=== PATIENT | female | born 1985 | race Caucasian/White ===

== ENCOUNTER → 2020-10-20 14:00 | Outpatient (BNVA) | payer BC, MEDICAID, SELFPAY | PROVIDERS: Visit Provider Obstetrics & Gynecology | DX: N87.0 Mild cervical dysplasia (principal); Z01.411 Encounter for gynecological examination (general) (routine) with abnormal findings | CPT/HCPCS: 88175 ==

== ENCOUNTER 2020-12-16 14:06 | Outpatient (CLI) | payer BC, MEDICAID, SELFPAY ==
--- NOTE | 2020-12-16 15:00 | US_ITS ---
WS: [id number] ULTRASOUND BREAST RIGHT TECHNIQUE: Ultrasound right breast focused area of concern. CLINICAL INFORMATION: N64.4 - Mastodynia COMPARISON: None. FINDINGS: Ultrasound right breast at the 3:00 position 3 cm from the nipple. Tiny cystic lesion at the 3:00 pos ition 1 cm from the nipple measuring 4 x 5 mm consistent with an incidental benign cyst. No other verona picious abnormalities. No lesions to target for biopsy. US/US breast RT limited* [id number] IMPRESSION: BI-RADS 2 benign RECOMMEND ANNUAL SCREENING MAMMOGRAPHY AGE 40
== END 2020-12-16 14:07 | disposition home or self-care (01) ==
LOC: RADSHAW 14:08
PROVIDERS: Visit Provider Nurse Practitioner Women's Health
DX: N64.4 Mastodynia (principal)
CPT/HCPCS: 76642

== ENCOUNTER → 2021-12-17 12:10 | Outpatient (BNVA) | payer BC, MEDICAID, SELFPAY | PROVIDERS: Visit Provider Nurse Practitioner Women's Health | DX: N87.0 Mild cervical dysplasia (principal) | CPT/HCPCS: 87624 ==

== ENCOUNTER → 2022-02-12 09:29 | Outpatient (BNVA) | payer BC, MEDICAID, SELFPAY | PROVIDERS: Visit Provider Obstetrics & Gynecology | DX: R87.619 Unspecified abnormal cytological findings in specimens from cervix uteri (principal) | CPT/HCPCS: 88305 ==

== ENCOUNTER → 2022-10-11 09:03 | Outpatient (BNVA) | payer BC, MEDICAID, SELFPAY | PROVIDERS: Visit Provider Obstetrics & Gynecology | DX: Z11.3 Encounter for screening for infections with a predominantly sexual mode of transmission (principal) | CPT/HCPCS: 86803; 87340; 87806 ==

== ENCOUNTER → 2022-12-23 14:52 | Outpatient (BNVA) | payer BC, MEDICAID, SELFPAY | PROVIDERS: Visit Provider Nurse Practitioner Women's Health | DX: N87.0 Mild cervical dysplasia (principal) | CPT/HCPCS: 87624 ==

== ENCOUNTER 2023-01-06 13:35 | Outpatient (CLI) | payer BC, MEDICAID, SELFPAY ==
--- NOTE | 2023-01-06 13:55 | MM_ITS ---
WS: [id number] BILATERAL 3D TOMOSYNTHESIS DIGITAL DIAGNOSTIC MAMMOGRAPHY WITH CAD CLINICAL INFORMATION: N63.20 - Unspecified lump in the left breast, unspecified... HISTORY: LEFT breast lumps and soreness COMPARISON: None. TECHNIQUE: Bilateral CC, MLO, and ML views. FINDINGS: The breasts are composed of heterogeneous fibroglandular density, which can limit the detection of sm all underlying mass lesions. Dense breast tissue upper outer LEFT breast. No other suspicious abnorma lities in the LEFT breast. Unremarkable RIGHT breast. ULTRASOUND BREAST LEFT TECHNIQUE: Ultrasound left breast focused area of concern. CLINICAL INFORMATION: N63.20 - Unspecified lump in the left breast, unspecified... FINDINGS: Ultrasound LEFT breast upper-outer quadrant. Incidental simple cyst at the 3:00 position 1 cm from th e nipple. No other suspicious parenchymal abnormalities. No lesions to target for biopsy. MM/[place] [id number] IMPRESSION: BI-RADS: 2-Benign FOLLOW UP: Age 40 Recommend annual screening mammography age 40
--- NOTE | 2023-01-06 14:30 | US_ITS ---
WS: [id number] BILATERAL 3D TOMOSYNTHESIS DIGITAL DIAGNOSTIC MAMMOGRAPHY WITH CAD CLINICAL INFORMATION: N63.20 - Unspecified lump in the left breast, unspecified... HISTORY: LEFT breast lumps and soreness COMPARISON: None. TECHNIQUE: Bilateral CC, MLO, and ML views. FINDINGS: The breasts are composed of heterogeneous fibroglandular density, which can limit the detection of sm all underlying mass lesions. Dense breast tissue upper outer LEFT breast. No other suspicious abnorma lities in the LEFT breast. Unremarkable RIGHT breast. ULTRASOUND BREAST LEFT TECHNIQUE: Ultrasound left breast focused area of concern. CLINICAL INFORMATION: N63.20 - Unspecified lump in the left breast, unspecified... FINDINGS: Ultrasound LEFT breast upper-outer quadrant. Incidental simple cyst at the 3:00 position 1 cm from th e nipple. No other suspicious parenchymal abnormalities. No lesions to target for biopsy. US/US breast LT limited* [id number] IMPRESSION: BI-RADS: 2-Benign FOLLOW UP: Age 40 Recommend annual screening mammography age 40
== END 2023-01-06 13:36 | disposition home or self-care (01) ==
PROVIDERS: PCP Nurse Practitioner Women's Health; Visit Provider Nurse Practitioner Women's Health
DX: N63.21 Unspecified lump in the left breast, upper outer quadrant (principal); N64.4 Mastodynia; N60.02 Solitary cyst of left breast
CPT/HCPCS: 76642; 77062; 87624; G0279

== ENCOUNTER → 2023-01-21 08:11 | Outpatient (BNVA) | payer BC, MEDICAID, SELFPAY | PROVIDERS: PCP Nurse Practitioner Women's Health; Visit Provider Obstetrics & Gynecology | DX: R87.610 Atypical squamous cells of undetermined significance on cytologic smear of cervix (ASC-US) (principal); R87.810 Cervical high risk human papillomavirus (HPV) DNA test positive | CPT/HCPCS: 88305; 88342 ==

== ENCOUNTER 2023-12-21 05:55 | Day surgery (SDC) | payer BC, MEDICAID, SELFPAY ==
[2023-12-21 06:07] VITALS: BP 128/92; PULSE 71; RESP 18; TEMP 35.6; O2SAT 96; BMI 32.0
[2023-12-21 06:13] LABS: OR HCG Qualitative Urine Negative (Negative)
[2023-12-21] MEDS: sodium chloride 0.9% 1,000 ML 30 ML IV (06:15)
--- NOTE | 2023-12-21 06:40 | PM.HP ---
Providers/Chief Complaint Primary Care Provider: Selina Mercedes DO Chief Complaint: K21.9, K92.2, R10.9 History of Present Illness Kamilah Griffiths is a 38 year old female Review of Systems General: Reports: 10 or more systems reviewed and unremarkable except in HPI and below Medications/Allergies Home Medications Medication Instructions Recorded Confirmed Last Taken Type pantoprazole 40 mg tablet,delayed 40 mg PO BID 6 weeks #84 tabs 11/14/23 12/19/23 12/17/23 Rx release (Protonix) levothyroxine 75 mcg tablet 75 mcg PO DAILY 12/19/23 12/21/23 12/20/23 History Allergies Allergy/AdvReac Type Severity Reaction Status Date / Time No Known Allergies Allergy Verified 12/21/23 06:05 PFSH Acute PFSH: Medical History No pertinent past medical history neghx: htn,dm,thyroid,dvt/pe PCP: Obesity Cervical intraepithelial neoplasia I 04/05/2019: ASCUS with positive high risk HPV. 05/30/2019: Colposcopy with Bx. Bx showed ANNIE 1. Surgical History S/P cholecystectomy (02/26/19) Performed by Dr. Borja. S/P tubal ligation (~2008) H/O removal of neck cyst 4x branchial cysts. S/P tonsillectomy and adenoidectomy Family History Grandfather Diabetes Maternal Heart disease Maternal Grandmother Hypertension Paternal Mother Endometrial cancer dx age 58 Denies family history of Colon cancer Ovarian cancer Hypercholesteremia Breast cancer Uterine cancer Thyroid disease Stroke Social History Smoking and tobacco/nicotine status: current every day tobacco/nicotine user cigarettes Alcohol intake: never Substance/Drug Use: current Substance/Drug use frequency: daily Female Reproductive History: Date of last menstrual period: 11/18/23 Vitals/I&O/Wt Last Vital Signs Temp 96.0 F L 12/21/23 06:07 Pulse 71 12/21/23 06:07 Resp 18 12/21/23 06:07 BP 128/92 12/21/23 06:07 Pulse Ox 96 12/21/23 06:07 O2 Del Method Room Air 12/21/23 06:07 Weight last 48 hrs Weight 223 lb A&P Assessment and plan (1) GI bleed: Plan EGD and colonoscopy Attestations Medical Necessity Statement*: home Coding Level of Care Code Acute Code for Chg Fwd Diagnoses GI bleed K92.2
--- NOTE | 2023-12-21 06:52 | ANES.PREANE2 ---
Pre-Anesthetic Assessment Height/Weight: Height 1.78 m Weight 101.151 kg Temp Pulse Resp BP Pulse Ox O2 Del Method 96.0 F L 71 18 128/92 96 Room Air 12/21/23 06:07 12/21/23 06:07 12/21/23 06:07 12/21/23 06:07 12/21/23 06:07 12/21/23 06:07 Preop Diagnosis: GERD Operation Date: 12/21/23 07:00 Proposed Procedures p EGD(Not Applicable) - Abelardo Pompa DO s Colonoscopy(Not Applicable) - Abelardo Pompa DO Familial anesthetic complications: none Was Beta Grazyna taken within 24 hours: N/A Was Clonidine taken within 24 hours: N/A Last intake: Intake Last Liquid Date 12/20/23 Last Liquid Time 23:45 Last Solid Date 12/19/23 Last Solid Time 20:00 Last Intake: 23:00 Social Tobacco 1ppd pack(s) per day 20+ pack years Exam alert, oriented x 3, clear to auscultation bilaterally and regular rate & rhythm Airway Submandibular: within normal limits Cervical ROM: within normal limits Mallampati: Class II Dentition: full Pulmonary None reported CV/HEM Anemia None reported Hepatic None reported GI Gastroesophageal Reflux Disease (controlled) Metabolic Morbid Obesity and Thyroid Disease Musc/skel Lower Back Pain Neuropsych Anxiety and Depression Anesthetic Plan ASA status: 2 Anesthesia: MAC Risk of > 500 ml blood loss (7ml/kg in children): No Medications/Allergies Home Medications Medication Instructions Recorded Confirmed Last Taken Type pantoprazole 40 mg tablet,delayed 40 mg PO BID 6 weeks #84 tabs 11/14/23 12/19/23 12/17/23 Rx release (Protonix) levothyroxine 75 mcg tablet 75 mcg PO DAILY 12/19/23 12/21/23 12/20/23 History Allergies Allergy/AdvReac Type Severity Reaction Status Date / Time No Known Allergies Allergy Verified 12/21/23 06:05 Current Medications Generic Name Dose Route Start Last Admin Trade Name Freq PRN Reason Stop Dose Admin Sodium Chloride 1,000 mls @ 30 mls/hr 12/21/23 06:00 12/21/23 06:15 Sodium Chloride 0.9% IV 12/22/23 05:59 30 mls/hr .Q24H AMY Administration PFSH Anesthesia Medical History No pertinent past medical history neghx: htn,dm,thyroid,dvt/pe PCP: Obesity Cervical intraepithelial neoplasia I 04/05/2019: ASCUS with positive high risk HPV. 05/30/2019: Colposcopy with Bx. Bx showed ANNIE 1. Surgical History S/P cholecystectomy (02/26/19) Performed by Dr. Borja. S/P tubal ligation (~2008) H/O removal of neck cyst 4x branchial cysts. S/P tonsillectomy and adenoidectomy Family History Grandfather Diabetes Maternal Heart disease Maternal Grandmother Hypertension Paternal Mother Endometrial cancer dx age 58 Denies family history of Colon cancer Ovarian cancer Hypercholesteremia Breast cancer Uterine cancer Thyroid disease Stroke Social History Smoking and tobacco/nicotine status: current every day tobacco/nicotine user cigarettes Alcohol intake: never Substance/Drug Use: current Substance/Drug use frequency: daily Female Reproductive History Date of last menstrual period: 11/18/23 Data Anesthesia Cardiac Studies: No Data to Display
[2023-12-21 07:22] VITALS: BP 112/67; PULSE 81; RESP 18; O2SAT 94
--- NOTE | 2023-12-21 07:25 | ANE.PACU2 ---
Inpatient post-anesthesia follow up: Airway intact: Yes Vital signs: Temperature 96.0 F Pulse Rate 64 Respiratory Rate 18 Blood Pressure 117/77 Pulse Oximetry 97 Oxygen Delivery Me thod Room Air Oxygen Flow Rate Fraction of Inspir ed Oxygen Hydration adequate: Yes Nausea and vomiting: No Pain level: 1 Mental status: Baseline
[2023-12-21 07:32] VITALS: BP 108/79; PULSE 66; RESP 18; O2SAT 97
[2023-12-21 07:42] VITALS: BP 117/77; PULSE 64; RESP 18; O2SAT 97
== END 2023-12-21 08:00 | disposition home or self-care (01) ==
PROVIDERS: Anesthesiology; PCP Family Medicine; Visit Provider Surgery
PROC: 0DJ08ZZ Inspection of Upper Intestinal Tract, Via Natural or Artificial Opening Endoscopic (ICD-10-PCS; CPT 43235; principal; 2023-12-21 07:00)
PROC: 0DJD8ZZ Inspection of Lower Intestinal Tract, Via Natural or Artificial Opening Endoscopic (ICD-10-PCS; CPT 45378; 2023-12-21 07:00)
DX: K21.9 Gastro-esophageal reflux disease without esophagitis (principal)
CPT/HCPCS: 43239; 45378; 81025; 88305; J2704; J7030

== ENCOUNTER 2024-01-17 07:54 | Day surgery (SDC) | payer BC, MEDICAID, SELFPAY ==
[2024-01-17] VITALS (10 sets, daily range): BP systolic 106–126; BP diastolic 59–85; PULSE 58–68; RESP 12–21; TEMP 36.1–36.2; O2SAT 94–100; BMI 32.3
[2024-01-17 08:30] LABS: OR HCG Qualitative Urine Negative (Negative)
--- NOTE | 2024-01-17 08:35 | W.PM.OPSUD ---
Surgery/Procedure H&P Update DATE OF PROCEDURE: January 17, 2024 DATE H&P PERFORMED: 11/02/23 H&P UPDATE INFORMATION: I have reviewed H&P completed within last 30 days, I have examined patient prior to procedure and No changes to prior documentation PLANNED PROCEDURE: Operation Date: 01/17/24 09:40 Proposed Procedures p Hemorrhoidectomy 89458, K64.8(Not Applicable) - Abelardo Pompa DO
--- NOTE | 2024-01-17 08:50 | P.ANESASSM_ITS ---
Pre-Anesthetic Assessment Height/Weight: Height 1.78 m Weight 102.058 kg Temp Pulse Resp BP Pulse Ox O2 Del Method 97.1 F L 65 18 124/70 96 Room Air 01/17/24 08:36 01/17/24 08:36 01/17/24 08:36 01/17/24 08:36 01/17/24 08:36 01/17/24 08:38 Operation Date: 01/17/24 09:40 Proposed Procedures p Hemorrhoidectomy 37623, K64.8(Not Applicable) - Abelardo Pompa DO Familial anesthetic complications: None Was Beta Grazyna taken within 24 hours: N/A Was Clonidine taken within 24 hours: N/A Last intake: Intake Last Liquid Date 01/16/24 Last Liquid Time 23:30 Last Solid Date 01/16/24 Last Solid Time 19:30 Social Tobacco and No alcohol Exam alert, oriented x 3, clear to auscultation bilaterally and regular rate & rhythm Airway Mallampati: Class II Dentition: full GI Gastroesophageal Reflux Disease Metabolic Thyroid Disease Anesthetic Plan ASA status: 2 Anesthesia: General Risk of > 500 ml blood loss (7ml/kg in children): No Medications/Allergies Home Medications Medication Instructions Recorded Confirmed Last Taken Type pantoprazole 40 mg tablet,delayed 40 mg PO BID 6 weeks #84 tabs 11/14/2301/16/24 Rx release (Protonix) levothyroxine 75 mcg tablet 75 mcg PO DAILY 12/19/23 01/16/24 01/16/24 History Allergies Allergy/AdvReac Type Severity Reaction Status Date / Time No Known Allergies Allergy Verified 01/16/24 10:17 [facility] Anesthesia Medical History No pertinent past medical history neghx: htn,dm,thyroid,dvt/pe PCP: Obesity Cervical intraepithelial neoplasia I 04/05/2019: ASCUS with positive high risk HPV. 05/30/2019: Colposcopy with Bx. Bx showed ANNIE 1. Surgical History S/P cholecystectomy (02/26/19) Performed by Dr. Borja. S/P tubal ligation (~2008) H/O removal of neck cyst 4x branchial cysts. S/P tonsillectomy and adenoidectomy Family History Grandfather Diabetes Maternal Heart disease Maternal Grandmother Hypertension Paternal Mother Endometrial cancer dx age 58 Denies family history of Colon cancer Ovarian cancer Hypercholesteremia Breast cancer Uterine cancer Thyroid disease Stroke Social History Smoking and tobacco/nicotine status: current every day tobacco/nicotine user cigarettes Alcohol intake: never Substance/Drug Use: current Substance/Drug use frequency: daily Female Reproductive History Date of last menstrual period: 01/16/24 Data Anesthesia Cardiac Studies: No Data to Display
[2024-01-17] MEDS: scopolamine 1.5 Patch 1 PATCH TRANSDERMA (09:03)
[2024-01-17] MEDS: sodium chloride 0.9% 1,000 ML 30 ML IV (09:04)
[2024-01-17] MEDS: ceFAZolin 2,000 MG in sodium chloride 0.9% (plus) 50 ML 100 MG IV (09:20)
[2024-01-17] MEDS: BUPivacaine 0.5% INJ 10 mL INJECTION (10:01)
[2024-01-17] MEDS: BUPivacaine liposome 13.3 mg/mL SDV 10 mL 133 MG INFILTRATI (10:01)
[2024-01-17] MEDS: thrombin 5,000 unit SDV 5000 UNIT XX (10:04)
--- NOTE | 2024-01-17 10:30 | PM.OP ---
Operative Report Date of procedure: January 17, 2024 Pre-op diagnosis: Internal hemorrhoids Post-op diagnosis: same Procedure done: Hemorrhoidectomy of all 3 hemorrhoidal pillars Implants: Thrombin Gelfoam Specimens removed/disposition: hemorrhoids Surgeon: Abelardo Pompa DO Anesthesia: General and Local Estimated blood loss (mL): 5 Complications: None apparent Brief History: This very pleasant 38-year-old female presented my office with large ulcerated hemorrhoid. She desired hemorrhoidectomy. The risks and benefits were explained and documented. Procedure: Patient was well in the operative room and general endotracheal ovation was achieved by the department anesthesia. He was then placed into the prone jackknife position. The anus was inspected prepped and draped in usual sterile fashion. A timeout was performed. All present were in agreement. Retractor was used to examine the anus and he had sizable hemorrhoids at all 3 pillars. The largest pillar was the right posterior. All 3 pillars were taken in the same manner. The exterior most edge of the hemorrhoid was slightly ligated with electrocautery. The harmonic scalpel was then used to excise all 3 hemorrhoidal pillars. There was minimal bleeding. Thrombin-soaked Gelfoam was then placed into the anus. Sterile bandage was applied. Patient tolerated procedure well.
[2024-01-17] MEDS: HYDROcodone-acetaminophen 7.5-325 mg Tablet 1 TAB PO (11:27)
--- NOTE | 2024-01-17 11:55 | ANE.PACU2 ---
Inpatient post-anesthesia follow up: Airway intact: Yes Vital signs: Temperature 97.2 F Pulse Rate 62 Respiratory Rate 17 Blood Pressure 106/59 Pulse Oximetry 96 Oxygen Delivery Me thod Room Air Oxygen Flow Rate 8 Fraction of Inspir ed Oxygen Hydration adequate: Yes Nausea and vomiting: No Pain level: 1 Mental status: Baseline
== END 2024-01-17 11:59 | disposition home or self-care (01) ==
PROVIDERS: Anesthesiology; PCP Family Medicine; Visit Provider Surgery
PROC: (CPT 46260; principal; 2024-01-17 09:40)
DX: K64.8 Other hemorrhoids (principal); K21.9 Gastro-esophageal reflux disease without esophagitis; F17.210 Nicotine dependence, cigarettes, uncomplicated; E03.9 Hypothyroidism, unspecified
CPT/HCPCS: 46260; 81025; 88304; C9290; J0330; J0690; J1100; J2250; J2405; J2704; J2710; J3010; J3490; J7030

== ENCOUNTER → 2024-04-26 15:40 | Outpatient (BNVA) | payer BC, MEDICAID, SELFPAY | PROVIDERS: PCP Family Medicine; Visit Provider Nurse Practitioner Women's Health | DX: Z13.1 Encounter for screening for diabetes mellitus; Z13.0 Encounter for screening for diseases of the blood and blood-forming organs and certain disorders involving the immune mechanism | CPT/HCPCS: 83036; 85025; 87624 ==

== ENCOUNTER → 2024-05-21 13:12 | Outpatient (BNVA) | payer BC, MEDICAID, SELFPAY | PROVIDERS: PCP Family Medicine; Visit Provider Obstetrics & Gynecology | DX: R87.629 Unspecified abnormal cytological findings in specimens from vagina (principal) | CPT/HCPCS: 81025; 88305 ==

== ENCOUNTER → 2024-12-05 09:12 | Outpatient (BNVA) | payer BC, MEDICAID, SELFPAY | PROVIDERS: PCP Family Medicine; Visit Provider Nurse Practitioner Women's Health | DX: N92.6 Irregular menstruation, unspecified (principal) | CPT/HCPCS: 76830 ==

== ENCOUNTER → 2024-12-13 08:54 | Outpatient (BNVA) | payer BC, SELFPAY | PROVIDERS: PCP Family Medicine; Visit Provider Nurse Practitioner Women's Health | DX: N93.9 Abnormal uterine and vaginal bleeding, unspecified (principal); R53.83 Other fatigue | CPT/HCPCS: 80053; 82728; 83540; 85025 ==

== ENCOUNTER → 2024-12-20 14:31 | Outpatient (BNVA) | payer BC, SELFPAY | PROVIDERS: PCP Family Medicine; Visit Provider Nurse Practitioner Women's Health | DX: R93.89 Abnormal findings on diagnostic imaging of other specified body structures (principal); N83.202 Unspecified ovarian cyst, left side | CPT/HCPCS: 76830 ==

== ENCOUNTER → 2025-01-16 15:43 | Outpatient (BNVA) | payer BC, SELFPAY | PROVIDERS: PCP Family Medicine; Visit Provider Nurse Practitioner Women's Health | DX: N83.291 Other ovarian cyst, right side (principal); N83.292 Other ovarian cyst, left side | CPT/HCPCS: 76830 ==

== ENCOUNTER → 2025-02-22 11:56 | Outpatient (BNVA) | payer BC, MEDICAID, SELFPAY | PROVIDERS: PCP Family Medicine; Visit Provider Nurse Practitioner Women's Health | DX: N93.9 Abnormal uterine and vaginal bleeding, unspecified (principal) | CPT/HCPCS: 88305 ==